=== PATIENT | female | born 1935 | race Caucasian/White ===

== ENCOUNTER → 2018-11-17 | Outpatient (CLI) | payer MEDICARE ==
[2018-11-17 17:32] LABS: C REACTIVE PROTEIN QUANTITATIV 0.49 MG/DL (0.00-0.30); RHEUMATOID FACTOR QUANT < 10.0 IU/ML (<15.0)
[2018-11-20 14:29] LABS: T UPTAKE 34 % (30-39); THYROID STIMULATING HORMONE 0.442 uIU/ML (0.358-3.740); THYROXINE (T4) 11.7 UG/DL (4.5-12.0)
[2018-11-24 10:22] LABS: ANCA-ATYPICAL <1:20 titer (Neg:<1:20); ANGIOTENSIN 1 CONVERTING ENZYM 6 U/L (14-82); ANTI JO-1 ANTIBODIES <0.2 AI (0.0-0.9); ANTINUCLEAR ANTIBODIES DIRECT Negative (Negative); ASPERGILLUS FUMIGATUS AB Negative (Negative); AUREOBASIDIUM PULLULANS Negative (Negative); CYCLIC CITRULLINATED PEPTIDE 5 units (0-19); CYTOPLASMIC NEUTROP AB ANCA-C <1:20 titer (Neg:<1:20); MICROPOLYSPORA FAENI AB Negative (Negative); PERINUCLEAR AB ANCA-P <1:20 titer (Neg:<1:20); PIGEON SERUM AB Negative (Negative); SJOGREN'S ANTI SS-A <0.2 AI (0.0-0.9); SJOGREN'S ANTI SS-B <0.2 AI (0.0-0.9); THERMOACTINOMYCES SACCHARI Negative (Negative); THERMOACTINOMYCES VULGARIS Negative (Negative)
== END ==
LOC: M SMT 14:53
PROVIDERS: ATTEND Internal Medicine Pulmonary Disease
DX: I27.20 Pulmonary hypertension, unspecified (principal)

== ENCOUNTER 2022-06-20 17:01 | Inpatient (IN) | payer MEDICARE ==
[~2022-06-20] VITALS: Ht 149.9 cm; Wt 75.3 kg
[2022-06-20] MEDS: INSULIN LISPRO (NovoLOG) PER UNIT SC SCH ×2 (17:30→21:00)
[2022-06-20] MEDS ORDERED: GLUCAGON INJ 1MG VIAL SC PRN (17:30)
[2022-06-20] MEDS ORDERED: DEXTROSE 50% 50 ML SYRINGE IV PRN (17:30)
[2022-06-20] MEDS ORDERED: GLUCOSE 4GM CHEW TABLET PO PRN (17:30)
[2022-06-20 20:00] VITALS: BP 175/75
[2022-06-20] MEDS ORDERED: LISI40TA4 PO (20:47)
[2022-06-20] MEDS ORDERED: ATOR1TAB21 PO (20:47)
[2022-06-20] MEDS ORDERED: GABA-282 PO ×2 (20:47)
[2022-06-20] MEDS ORDERED: GLIM4TAB5 PO (20:47)
[2022-06-20] MEDS ORDERED: MECL-86 PO (20:47)
[2022-06-20] MEDS ORDERED: AMLO1TAB24 PO (20:47)
[2022-06-20] MEDS ORDERED: ATEN50TA2 PO (20:47)
[2022-06-20 20:49] LABS: BASO # 0.1 10^3/uL (0.0-0.2); BASO % 0.7 % (0.0-1.0); EOS # 0.3 10^3/uL (0.0-0.5); EOS % 1.9 % (0.0-3.0); HEMATOCRIT 42.6 % (36.0-47.0); HEMOGLOBIN 13.8 g/dl (12.0-15.5); LYMPH # 1.9 10^3/uL (1.5-5.0); LYMPH % 14.1 % (24.0-44.0); MEAN CORPUSCULAR HEMOGLOBIN 31.9 pg (27.0-33.0); MEAN CORPUSCULAR HGB CONC 32.4 g/dl (32.0-36.5); MEAN CORPUSCULAR VOLUME 98.6 fl (80.0-96.0); MONO # 1.3 10^3/uL (0.0-0.8); MONO % 9.5 % (2.0-8.0); NEUTROPHILS # 9.9 10^3/uL (1.5-8.5); NEUTROPHILS % 73.1 % (36.0-66.0); PLATELET COUNT, AUTOMATED 274 10^3/uL (150-450); RED BLOOD COUNT 4.32 10^6/uL (4.00-5.40); WHITE BLOOD COUNT 13.5 10^3/uL (4.0-10.0)
[2022-06-20] MEDS ORDERED: BENA25CA4 PO (20:49)
[2022-06-20] MEDS ORDERED: OCUVTAB4 PO (20:49)
[2022-06-20] MEDS ORDERED: HOME MED LIST COMPLETE! XX SCH (20:50)
[2022-06-20 20:57] LABS: HEMOGLOBIN A1c 6.4 %
[2022-06-20 21:14] LABS: ERYTHROCYTE SEDIMENTATION RATE 55 mm/hr (0-30)
[2022-06-20 21:15] LABS: CK-MB VALUE MASS 1.2 NG/ML (<3.6); MB/CK RELATIVE INDEX 1.5 (< OR =4)
[2022-06-20] MEDS ORDERED: FUROSEMIDE 20MG/2ML VIAL (J1940) IV ONE (21:15)
[2022-06-20 21:20] LABS: ALBUMIN 3.8 GM/DL (3.2-5.2); BILIRUBIN,TOTAL 0.6 MG/DL (0.2-1.0); C REACTIVE PROTEIN QUANTITATIV 1.53 MG/DL (0.00-0.30); CALCIUM LEVEL 9.9 MG/DL (8.8-10.2); CREATININE FOR GFR 2.43 MG/DL (0.55-1.30); MAGNESIUM LEVEL 1.7 MG/DL (1.8-2.4); POTASSIUM SERUM 5.5 MEQ/L (3.5-5.1); THYROID STIMULATING HORMONE 0.65 uIU/ML (0.358-3.740); TOTAL PROTEIN 7.6 GM/DL (6.4-8.2)
[2022-06-20] MEDS ORDERED: PATIROMER SORBITEX CALCIUM 8.4 GM POWDER PACKET (VELTASSA) PO ONE (21:30)
[2022-06-20] MEDS ORDERED: MAG SULF 1GM/100ML (MAG RUN) 1 GM in IV 1 EA IV ONE (21:30)
[2022-06-20] MEDS: ATORVASTATIN 20 MG TAB PO SCH (21:43)
[2022-06-20] MEDS: HEPARIN SOD (PORCINE) 5000UNITS/ML 1ML VIAL/SYRINGE SC SCH (23:17)
[2022-06-20] MEDS: GABAPENTIN 300 MG CAP PO SCH (23:17)
[2022-06-20 23:35] VITALS: BP 145/60
[2022-06-21 04:00] VITALS: BP 149/63
[2022-06-21 06:40] LABS: HEMATOCRIT 37.2 % (36.0-47.0); HEMOGLOBIN 12.3 g/dl (12.0-15.5); MEAN CORPUSCULAR HEMOGLOBIN 32.6 pg (27.0-33.0); MEAN CORPUSCULAR HGB CONC 33.1 g/dl (32.0-36.5); MEAN CORPUSCULAR VOLUME 98.7 fl (80.0-96.0); PLATELET COUNT, AUTOMATED 230 10^3/uL (150-450); RED BLOOD COUNT 3.77 10^6/uL (4.00-5.40); WHITE BLOOD COUNT 11.1 10^3/uL (4.0-10.0)
[2022-06-21 07:14] LABS: CALCIUM LEVEL 9.4 MG/DL (8.8-10.2); CREATININE FOR GFR 2.19 MG/DL (0.55-1.30); GLOMERULAR FILTRATION RATE 22.5 (>32); MAGNESIUM LEVEL 2.2 MG/DL (1.8-2.4); POTASSIUM SERUM 4.9 MEQ/L (3.5-5.1)
[2022-06-21] MEDS: INSULIN LISPRO (NovoLOG) PER UNIT SC SCH ×4 (07:30→21:00)
[2022-06-21 08:00] VITALS: BP 131/69
[2022-06-21] MEDS: GABAPENTIN 300 MG CAP PO SCH ×2 (08:25→21:16)
[2022-06-21] MEDS: atenoloL 50 MG TAB PO SCH (08:27)
[2022-06-21] MEDS: HEPARIN SOD (PORCINE) 5000UNITS/ML 1ML VIAL/SYRINGE SC SCH ×2 (08:28→21:16)
[2022-06-21] MEDS ORDERED: DOXYCYCLINE HYCLATE 100MG TABLET PO SCH (09:00)
[2022-06-21] MEDS ORDERED: amLODIPine 5 MG TAB PO SCH (09:00)
[2022-06-21] MEDS ORDERED: FUROSEMIDE 40MG/4ML VIAL (J1940) IV ONE (09:40)
[2022-06-21 12:00] VITALS: BP 118/59
[2022-06-21 16:00] VITALS: BP 115/62
[2022-06-21 20:00] VITALS: BP 137/58
[2022-06-21] MEDS: ATORVASTATIN 20 MG TAB PO SCH (21:16)
[2022-06-22 04:00] VITALS: BP 106/71
[2022-06-22 06:19] LABS: HEMATOCRIT 36.7 % (36.0-47.0); HEMOGLOBIN 12.1 g/dl (12.0-15.5); MEAN CORPUSCULAR HEMOGLOBIN 32.4 pg (27.0-33.0); MEAN CORPUSCULAR VOLUME 98.4 fl (80.0-96.0); PLATELET COUNT, AUTOMATED 221 10^3/uL (150-450); RED BLOOD COUNT 3.73 10^6/uL (4.00-5.40); WHITE BLOOD COUNT 11.1 10^3/uL (4.0-10.0)
[2022-06-22 06:48] LABS: CALCIUM LEVEL 8.7 MG/DL (8.8-10.2); CREATININE FOR GFR 2.33 MG/DL (0.55-1.30); MAGNESIUM LEVEL 2.1 MG/DL (1.8-2.4)
[2022-06-22 08:00] VITALS: BP 126/68
[2022-06-22] MEDS: INSULIN LISPRO (NovoLOG) PER UNIT SC SCH (08:46)
[2022-06-22] MEDS ORDERED: FUROSEMIDE 40MG/4ML VIAL (J1940) IV ONE (09:00)
[2022-06-22] MEDS ORDERED: SODIUM CHLORIDE NASAL 0.65% SPRAY BTL (OCEAN) SCH (09:00)
[2022-06-22] MEDS: HEPARIN SOD (PORCINE) 5000UNITS/ML 1ML VIAL/SYRINGE SC SCH (09:30)
[2022-06-22 09:31] VITALS: BP 126/68
[2022-06-22] MEDS: atenoloL 50 MG TAB PO SCH (09:32)
[2022-06-22] MEDS: GABAPENTIN 300 MG CAP PO SCH (09:32)
== END 2022-06-22 12:24 | disposition home or self-care (01) | DRG 292 ==
LOC: M PCU 18:45 → UNDOADMIN 18:45 → M PED 18:45
PROVIDERS: ADMIT General Practice; ATTEND Internal Medicine
DX: I13.0 Hypertensive heart and chronic kidney disease with heart failure and stage 1 through stage 4 chronic kidney disease, or unspecified chronic kidney disease (principal); N18.4 Chronic kidney disease, stage 4 (severe); I50.9 Heart failure, unspecified; E78.5 Hyperlipidemia, unspecified; E11.42 Type 2 diabetes mellitus with diabetic polyneuropathy; E11.22 Type 2 diabetes mellitus with diabetic chronic kidney disease; E87.5 Hyperkalemia; I27.81 Cor pulmonale (chronic); J84.10 Pulmonary fibrosis, unspecified; Z79.899 Other long term (current) drug therapy; J44.9 Chronic obstructive pulmonary disease, unspecified; I35.0 Nonrheumatic aortic (valve) stenosis; E55.9 Vitamin D deficiency, unspecified; G25.81 Restless legs syndrome; M19.90 Unspecified osteoarthritis, unspecified site; G47.30 Sleep apnea, unspecified; Z85.828 Personal history of other malignant neoplasm of skin; Z98.49 Cataract extraction status, unspecified eye; Z96.653 Presence of artificial knee joint, bilateral; Z87.891 Personal history of nicotine dependence

== ENCOUNTER → 2022-07-15 | Outpatient (REF) | payer MEDICARE ==
[~2022-07-15] MED LIST: AMLO1TAB24 PO; ATEN50TA2 PO; ATOR1TAB21 PO; BENA25CA4 PO; GABA-282 PO; GLIM4TAB5 PO; LISI40TA4 PO; MECL-86 PO; OCUVTAB4 PO
[2022-07-15 19:18] LABS: CREATININE,RANDOM URINE 90.6 MG/DL; PERCENT SATURATION 34.8 % (13.2-45.0); TOTAL PROTEIN,RANDOM URINE 13.9 MG/DL (0.0-12.0)
== END ==
LOC: M LAB REF 17:12
PROVIDERS: ATTEND Internal Medicine Nephrology
DX: N18.4 Chronic kidney disease, stage 4 (severe) (principal)